=== PATIENT | male | born 1965 | race African-American/Black ===

== ENCOUNTER 2021-08-30 11:50 | Emergency (ER) | payer MEDICAID ==
[~2021-08-30] VITALS: Ht 190.5 cm; Wt 118.0 kg
[2021-08-30] MEDS ORDERED: IV NORMAL SALINE 1000ML BAG 1,000 ML IV ONE (13:15)
[2021-08-30] MEDS ORDERED: MORPHINE SULFATE 4 MG/ML INJ. IVP ONE (13:15)
[2021-08-30] MEDS ORDERED: ONDANSETRON PF 4 MG/2 ML VIAL. IVP ONE (13:15)
[2021-08-30 13:30] LABS: BASO # 0.1 x10^3/uL (0.0-0.2); BASO % 1 % (0-3); EOS # 0.1 x10^3/uL (0.0-0.7); EOS % 2 % (0-3); HEMATOCRIT 51.4 % (39.0-53.0); HEMOGLOBIN 16.3 g/dL (13.0-17.5); LYMPH # 1.7 x10^3/uL (1.0-4.8); LYMPH % 35 % (24-48); MEAN CORPUSCULAR HEMOGLOBIN 28 pg (25-35); MEAN CORPUSCULAR HGB CONC 32 g/dL (31-37); MEAN CORPUSCULAR VOLUME 88 fL (79-100); MONO # 0.4 x10^3/uL (0.0-1.1); MONO % 9 % (0-9); NEUT # 2.7 x10^3/uL (1.8-7.7); NEUT % 54 % (31-73); PLATELET COUNT 158 x10^3/uL (140-400); RED BLOOD COUNT 5.85 x10^6/uL (4.30-5.70); RED CELL DISTRIBUTION WIDTH 16.6 % (11.5-14.5)
[2021-08-30 13:46] LABS: CALCIUM 8.9 mg/dL (8.5-10.1); CREATININE 1.6 mg/dL (0.7-1.3); GFR 54.4; POTASSIUM 4.2 mmol/L (3.5-5.1)
[2021-08-30 13:52] LABS: ALBUMIN 3.4 g/dL (3.4-5.0); ALBUMIN/GLOBULIN RATIO 0.8 (1.0-1.7); TOTAL BILIRUBIN 0.3 mg/dL (0.2-1.0); TOTAL PROTEIN 7.6 g/dL (6.4-8.2)
--- NOTE | 2021-08-30 14:12 | PHYS DOC ---
Past Medical History Additional Past Medical Histor: OA (KISHAN HERRERA Mildred CHAIR POST MACHINE OPERATOR) Past Surgical History: Knee Replacement Additional Past Surgical Histo: FINGER SX (KISHAN HERRERA CHAIR POST MACHINE OPERATOR) Smoking Status: Current Every Day Smoker Alcohol Use: Occasionally (KISHAN HERRERA Mildred CHAIR POST MACHINE OPERATOR) General Adult EDM: Chief Complaint: FLANK PAIN HPI: HPI: Patient is a 56-year-old male with no significant medical history presenting today complaining of moderate bilateral flank pain, symptoms have been going on for "a minute". Patient is also complaining of barely urinating, symptoms have been going on since yesterday. Patient is also complaining of diarrhea since yesterday. Denies any melena. Patient is a poor historian currently asking for pain medicine more than anything else. Denies any nausea, vomiting, urgency frequency or dysuria. States his urine is "dark yellow" denies any personal family history of kidney stones. (KISHAN HERRERA CHAIR POST MACHINE OPERATOR) Review of Systems: Review of Systems: Constitutional: Denies fever or chills. [] Eyes: Denies change in visual acuity. [] HENT: Denies nasal congestion or sore throat. [] Respiratory: Denies cough or shortness of breath. [] Cardiovascular: Denies chest pain or edema. [] GI: Reports diarrhea. Denies abdominal pain, nausea, vomiting, bloody stools or diarrhea. [] : Reports bilateral flank pain and barely urinating. Denies dysuria. [] Musculoskeletal: Denies back pain or joint pain. [] Integument: Denies rash. [] Neurologic: Denies headache, focal weakness or sensory changes. [] Psychiatric: Denies depression or anxiety. [] (KISHAN HERRERA Mildred CHAIR POST MACHINE OPERATOR) Heart Score: C/O Chest Pain: N/A Risk Factors: Risk Factors: DM, Current or recent (<one month) smoker, HTN, HLP, family history of CAD, obesity. Risk Scores: Score 0 - 3: 2.5% MACE over next 6 weeks - Discharge Home Score 4 - 6: 20.3% MACE over next 6 weeks - Admit for Clinical Observation Score 7 - 10: 72.7% MACE over next 6 weeks - Early Invasive Strategies (BAILEELachoKISHAN Mildred CHAIR POST MACHINE OPERATOR) Current Medications: Current Medications Medications (Trade) Dose Ordered Sig/Stevie Start Time Stop Time Status Last Admin Dose Admin Morphine Sulfate (Morphine Sulfate) 4 mg 1X ONCE 08/30/21 13:15 08/30/21 13:18 DC 08/30/21 13:49 4 MG Ondansetron HCl (Zofran) 4 mg 1X ONCE 08/30/21 13:15 08/30/21 13:18 DC 08/30/21 13:48 4 MG Sodium Chloride 1,000 ml @ 1,000 mls/hr 1X ONCE 08/30/21 13:15 08/30/21 14:14 08/30/21 13:46 1,000 MLS/HR (KISHAN HERRERA CHAIR POST MACHINE OPERATOR) Allergies: Allergies: Allergies Coded Allergies Type Severity Reaction Last Updated Verified No Known Drug Allergies 08/30/21 No (KISHAN HERRERA CHAIR POST MACHINE OPERATOR) Physical Exam: PE: Constitutional: Well developed, well nourished, no acute distress, non-toxic appearance. [] HENT: Normocephalic, atraumatic, bilateral external ears normal, oropharynx moist, no oral exudates, nose normal. [] Eyes: PERRLA, EOMI, conjunctiva normal, no discharge. [] Neck: Normal range of motion, no tenderness, supple, no stridor. [] Cardiovascular:Heart rate regular rhythm, no murmur [] Lungs & Thorax: Bilateral breath sounds clear to auscultation [] Abdomen: Bowel sounds normal, soft, no tenderness, no masses, no pulsatile masses. [] Skin: Warm, dry, no erythema, no rash. [] Back: No tenderness, moderate bilateral CVA tenderness. [] Extremities: No tenderness, no cyanosis, no clubbing, ROM intact, no edema. [] Neurologic: Alert and oriented X 3, normal motor function, normal sensory function, no focal deficits noted. [] Psychologic: Affect normal, judgement normal, mood normal. [] (KISHNA HERRERA CHAIR POST MACHINE OPERATOR) Current Patient Data: Labs: Laboratory Tests Test 08/30/21 12:44 White Blood Count 5.0 x10^3/uL (4.0-11.0) Red Blood Count 5.85 x10^6/uL (4.30-5.70) H Hemoglobin 16.3 g/dL (13.0-17.5) Hematocrit 51.4 % (39.0-53.0) Mean Corpuscular Volume 88 fL (79-100) Mean Corpuscular Hemoglobin 28 pg (25-35) Mean Corpuscular Hemoglobin Concent 32 g/dL (31-37) Red Cell Distribution Width 16.6 % (11.5-14.5) H Platelet Count 158 x10^3/uL (140-400) Neutrophils (%) (Auto) 54 % (31-73) Lymphocytes (%) (Auto) 35 % (24-48) Monocytes (%) (Auto) 9 % (0-9) Eosinophils (%) (Auto) 2 % (0-3) Basophils (%) (Auto) 1 % (0-3) Neutrophils # (Auto) 2.7 x10^3/uL (1.8-7.7) Lymphocytes # (Auto) 1.7 x10^3/uL (1.0-4.8) Monocytes # (Auto) 0.4 x10^3/uL (0.0-1.1) Eosinophils # (Auto) 0.1 x10^3/uL (0.0-0.7) Basophils # (Auto) 0.1 x10^3/uL (0.0-0.2) Sodium Level 142 mmol/L (136-145) Potassium Level 4.2 mmol/L (3.5-5.1) Chloride Level 106 mmol/L (98-107) Carbon Dioxide Level 25 mmol/L (21-32) Anion Gap 11 (6-14) Blood Urea Nitrogen 21 mg/dL (8-26) Creatinine 1.6 mg/dL (0.7-1.3) H Estimated GFR (Cockcroft-Gault) 54.4 BUN/Creatinine Ratio 13 (6-20) Glucose Level 108 mg/dL (70-99) H Calcium Level 8.9 mg/dL (8.5-10.1) Total Bilirubin 0.3 mg/dL (0.2-1.0) Aspartate Amino Transferase (AST) 29 U/L (15-37) Alanine Aminotransferase (ALT) 35 U/L (16-63) Alkaline Phosphatase 103 U/L (46-116) Total Protein 7.6 g/dL (6.4-8.2) Albumin 3.4 g/dL (3.4-5.0) Albumin/Globulin Ratio 0.8 (1.0-1.7) L Lipase 78 U/L (73-393) Ethyl Alcohol Level < 10 mg/dL (0-10) Laboratory Tests 08/30/21 12:44 Laboratory Tests 08/30/21 12:44 Vital Signs: Vital Signs Date Time Temp Pulse Resp B/P (MAP) Pulse Ox O2 Delivery O2 Flow Rate FiO2 08/30/21 12:31 97.8 78 16 173/97 (122) 96 97.8 (KISHAN HERRERA CHAIR POST MACHINE OPERATOR) EKG: EKG: [] (KISHAN HERRERA CHAIR POST MACHINE OPERATOR) Radiology/Procedures: Radiology/Procedures: []PROCEDURE: CT ABDOMEN PELVIS WO CONTRAST CT abdomen pelvis without contrast dated 08/30/2021. COMPARISON: None. CLINICAL INDICATION: Flank pain. TECHNIQUE: Contiguous axial imaging the M pelvis performed without the administration of IV or oral contrast. One or more of the following individualized dose reduction techniques were utilized for this examination: 1. Automated exposure control 2. Adjustment of the mA and/or kV according to patient size 3. Use of iterative reconstruction technique. FINDINGS: Limited images of lung bases are clear. Heart size is within normal limits. No pleural or pericardial effusion. Solid abdominal viscera not well evaluated in the absence of contrast material. No apparent attenuation abnormality of the liver or spleen. Pancreas, adrenal glands unremarkable. There are a few calcified stones in the gallbladder. There is a 5.8 cm cystic focus at the upper pole right kidney. There is also a smaller complex cyst at the right kidney lower pole measuring 2.3 cm. No calcific stone within the substance of either kidney. No ureteral stone or hydronephrosis. Unopacified GI tract normal in caliber and contour. No bowel wall thickening. No inflammatory stranding in the mesentery. Appendix normal in caliber. No ascites or lymphadenopathy. Images of pelvis show nondistended urinary bladder. Prostate gland is upper limits of normal in size. No free fluid or pelvic adenopathy. Bone window show no acute finding. Multilevel spondylosis. IMPRESSION: 1. No acute abnormality of abdomen or pelvis. No renal stone or hydronephrosis. 2. Normal appendix. 3. Cholelithiasis. Electronically signed by: Juan Carlos Narayan MD (08/30/2021 2:27 PM) [facility] [place] DICTATED and SIGNED BY: JUAN CARLOS NARAYAN MD DATE: 08/30/21 [id number] (KISHAN HERRERA APRN) Course & Med Decision Making: Course & Med Decision Making Pertinent Labs and Imaging studies reviewed. (See chart for details) This is a 56-year-old male patient presented to the ED today with bilateral flank pain for "a minute" and barely urinating, since yesterday. Is also complaining of diarrhea since yesterday. CBC with a normal WBC, CMP with creatinine of 1.6, BUN is normal, patient was given 1 L of fluid. Urine with no infection. CT of the abdomen and pelvic was noted for cholelithiasis otherwise no acute findings. Blood pressure was running in the 170s over 90s. Patient reports history of hypertension. He states he has not been taking his amlodipine. Prescription was given. Patient instructed to follow-up with his own primary care doctor. He was insistent on having pain medicine for home use. He was given prescription for cyclobenzaprine. Instructed to follow-up with the general surgeon for gallstones. Provided a doctor's list as well. (KISHAN HERRERA APRN) Dragon Disclaimer: Dragon Disclaimer: This electronic medical record was generated, in whole or in part, using a voice recognition dictation system. (KISHAN HERRERA APRN) Departure Departure Impression: Primary Impression: Flank pain Additional Impressions: Methamphetamine use Acute kidney injury Cholelithiasis Qualified Codes: K80.80 - Other cholelithiasis without obstruction Disposition: HOME / SELF CARE / HOMELESS Condition: STABLE Referrals: NO PCP (PCP) follow up in one week withone of the doctors from the list provided ANDREEA TROY MD follow up in 1-2 weeks Patient Instructions: Cholelithiasis, Flank Pain, Methamphetamine Abuse, Complications Additional Instructions: You were evaluated in the emergency room. You're noted to be dehydrated. We encourage you to push fluids. You also have gallstones, follow-up with the provided general surgeon as an out patient. Your drug screen was positive for methamphetamine. Consider getting help if you're using this as a drug. Ensure you're taking your blood pressure medicine Scripts Amlodipine Besylate (AMLODIPINE BESYLATE) 10 Mg Tablet 10 MG PO DAILY, #90 TAB Prov: KISHAN HERRERA APRN 12/13/21 Cyclobenzaprine Hcl (CYCLOBENZAPRINE HCL) 10 Mg Tablet 1 TAB PO TID, #30 TAB Prov: KISHAN HERRERA APRN 08/30/21 Attending Signature Attending Signature I have reviewed the PA/FREIGHT CAR BUILDER's note and plan of care. I was available for consultation as needed during the patient's visit in the emergency department. I agree with the clinical impression, plan, and disposition. (JUAN CARLOS MOSS DO) KISHAN HERRERA APRN Aug 30, 2021 14:12 JUAN CARLOS MOSS DO Sep 04, 2021 23:42
[2021-08-30 14:15] LABS: BILIRUBIN,URINE SMALL (NEG); CLARITY,URINE CLEAR; COLOR,URINE AMBER; NITRITE,URINE NEGATIVE (NEG); PH,URINE 5.5 (<5.0-8.0); PROTEIN,URINE 30 mg/dL (NEG-TRACE)
[2021-08-30 14:21] LABS: BARBITURATES NEG (NEG); BENZODIAZEPINES NEG (NEG); CANNABINOIDS NEG (NEG); COCAINE NEG (NEG); METHADONE NEG (NEG); OPIATES NEG (NEG); PHENCYCLIDINE NEG (NEG)
[2021-08-30 14:29] LABS: AMPHETAMINE/METHAMPHETAMINE POS (NEG)
--- NOTE | 2021-08-30 14:29 | RAD ---
CT abdomen pelvis without contrast dated 08/30/2021. COMPARISON: None. CLINICAL INDICATION: Flank pain. TECHNIQUE: Contiguous axial imaging the M pelvis performed without the administration of IV or oral contrast. One or more of the following individualized dose reduction techniques were utilized for this examinat ion: 1. Automated exposure control 2. Adjustment of the mA and/or kV according to patient size 3. Use of iterative reconstruction technique. FINDINGS: Limited images of lung bases are clear. Heart size is within normal limits. No pleural or pericardial effusion. Solid abdominal viscera not well evaluated in the absence of contrast material. No apparent attenuati on abnormality of the liver or spleen. Pancreas, adrenal glands unremarkable. There are a few calcifi ed stones in the gallbladder. There is a 5.8 cm cystic focus at the upper pole right kidney. There is also a smaller complex cyst a t the right kidney lower pole measuring 2.3 cm. No calcific stone within the substance of either kidn ey. No ureteral stone or hydronephrosis. Unopacified GI tract normal in caliber and contour. No bowel wall thickening. No inflammatory strandi ng in the mesentery. Appendix normal in caliber. No ascites or lymphadenopathy. Images of pelvis show nondistended urinary bladder. Prostate gland is upper limits of normal in size. No free fluid or pelvic adenopathy. Bone window show no acute finding. Multilevel spondylosis. IMPRESSION: 1. No acute abnormality of abdomen or pelvis. No renal stone or hydronephrosis. 2. Normal appendix. 3. Cholelithiasis. Electronically signed by: Juan Carlos Narayan MD (08/30/2021 2:27 PM) [facility]
[2021-08-30 14:55] LABS: AMORPHOUS SEDIMENT,UR PRESENT /HPF; HYALINE CASTS, URINE MANY /HPF
[2021-08-30 14:59] LABS: RBC,URINE 0 /HPF (0-2)
[2021-08-30 15:00] LABS: BACTERIA,URINE 0 /HPF (0-FEW)
[2021-08-30 15:23] VITALS: BP 143/89
[2021-08-30] MEDS ORDERED: CYCL10TA19 PO (16:17)
[2021-08-30] MEDS ORDERED: AMLO-187 PO (16:17)
== END 2021-08-30 16:15 | disposition home or self-care (01) ==
LOC: ER 11:50
DX: N17.9 Acute kidney failure, unspecified (principal); K80.20 Calculus of gallbladder without cholecystitis without obstruction; F15.10 Other stimulant abuse, uncomplicated; F17.200 Nicotine dependence, unspecified, uncomplicated
CPT/HCPCS: 36415; 74176; 80053; 80307; 81001; 83690; 85025; 96361; 96374; 96375; 99284; G0480; J2270; J2405; J7030

== ENCOUNTER 2021-12-08 16:51 | Emergency (ER) | payer MEDICAID ==
[~2021-12-08] VITALS: Ht 190.5 cm; Wt 123.0 kg
[~2021-12-08 16:51] MED LIST: AMLO-187 PO; CYCL10TA19 PO
[2021-12-08 18:25] LABS: BASO % 1 % (0-3); EOS # 0.1 x10^3/uL (0.0-0.7); EOS % 4 % (0-3); HEMATOCRIT 46.6 % (39.0-53.0); HEMOGLOBIN 14.9 g/dL (13.0-17.5); LYMPH # 1.9 x10^3/uL (1.0-4.8); LYMPH % 47 % (24-48); MEAN CORPUSCULAR HEMOGLOBIN 27 pg (25-35); MEAN CORPUSCULAR HGB CONC 32 g/dL (31-37); MEAN CORPUSCULAR VOLUME 84 fL (79-100); MONO # 0.3 x10^3/uL (0.0-1.1); MONO % 9 % (0-9); NEUT # 1.6 x10^3/uL (1.8-7.7); NEUT % 40 % (31-73); PLATELET COUNT 190 x10^3/uL (140-400); RED BLOOD COUNT 5.53 x10^6/uL (4.30-5.70)
[2021-12-08 18:32] LABS: CALCIUM 9.1 mg/dL (8.5-10.1); CREATININE 1.5 mg/dL (0.7-1.3); GFR 58.6; POTASSIUM 3.6 mmol/L (3.5-5.1)
[2021-12-08 18:36] LABS: ACETAMIN < 2 mcg/ml (10-30); ETHANOL < 10 mg/dL (0-10); SALIC 2.7 mg/dL (2.8-20.0)
[2021-12-08 18:37] LABS: ALBUMIN 3.7 g/dL (3.4-5.0); TOTAL BILIRUBIN 0.4 mg/dL (0.2-1.0); TOTAL PROTEIN 7.3 g/dL (6.4-8.2)
--- NOTE | 2021-12-08 18:51 | PHYS DOC ---
Past Medical History Additional Past Medical Histor: OA, SI Past Surgical History: Knee Replacement Additional Past Surgical Histo: FINGER SX Smoking Status: Current Every Day Smoker Alcohol Use: None General Adult EDM: Chief Complaint: SUICDAL IDEATION HPI: HPI: Patient is a 56-year-old male who presents to the emergency department for suicidal ideation. Patient reports he is having auditory hallucinations that are telling him to cut his throat. Patient reports that they started 2 to 3 days ago but is worsened overnight. Patient reports insomnia and has not slept since Monday. He reports a history of bipolar, depression and "anger issues". Patient has been inpatient at [facility] in the last month. It appears that patient takes risperidone, zolpidem, methocarbamol. Patient reports agitation. He is seeking inpatient psych. He denies any drug or alcohol use, homicidal ideation. Patient's only complaint is agitation and is requesting some Ativan. Review of Systems: Review of Systems: Constitutional: Denies fever or chills. [] Eyes: Denies change in visual acuity. [] HENT: Denies nasal congestion or sore throat. [] Respiratory: Denies cough or shortness of breath. [] Cardiovascular: Denies chest pain or edema. [] GI: Denies abdominal pain, nausea, vomiting, bloody stools or diarrhea. [] : Denies dysuria. [] Musculoskeletal: Denies back pain or joint pain. [] Integument: Denies rash. [] Neurologic: Denies headache, focal weakness or sensory changes. [] Endocrine: Denies polyuria or polydipsia. [] Lymphatic: Denies swollen glands. [] Psychiatric: See HPI Heart Score: C/O Chest Pain: N/A Risk Factors: Risk Factors: DM, Current or recent (<one month) smoker, HTN, HLP, family history of CAD, obesity. Risk Scores: Score 0 - 3: 2.5% MACE over next 6 weeks - Discharge Home Score 4 - 6: 20.3% MACE over next 6 weeks - Admit for Clinical Observation Score 7 - 10: 72.7% MACE over next 6 weeks - Early Invasive Strategies Current Medications: Current Medications Medications (Trade) Dose Ordered Sig/Stevie Start Time Stop Time Status Last Admin Dose Admin Lorazepam (Ativan Inj) 1 mg 1X ONCE 12/08/21 18:45 12/08/21 18:48 DC Allergies: Allergies: Allergies Coded Allergies Type Severity Reaction Last Updated Verified No Known Drug Allergies 08/30/21 No Physical Exam: PE: Constitutional: Well developed, well nourished, no acute distress, non-toxic appearance. [] HENT: Normocephalic, atraumatic, bilateral external ears normal, oropharynx m oist, no oral exudates, nose normal. [] Eyes: PERRL, EOMI, conjunctiva normal, no discharge. [] Neck: Normal range of motion, no stridor Cardiovascular:Heart rate regular rhythm, no murmur [] Lungs & Thorax: Bilateral breath sounds clear to auscultation [] Abdomen: Bowel sounds normal, soft, no tenderness, no masses, no pulsatile masses. [] Skin: Warm, dry, no erythema, no rash. [] Back: No tenderness, normal range of motion Extremities: No tenderness, no cyanosis, no clubbing, ROM intact, no edema. [] Neurologic: Alert and oriented X 3, normal motor function, normal sensory function, no focal deficits noted. [] Psychologic: Affect normal, judgement normal, mood normal. [] Current Patient Data: Labs: Laboratory Tests Test 12/08/21 17:48 White Blood Count 4.0 x10^3/uL (4.0-11.0) Red Blood Count 5.53 x10^6/uL (4.30-5.70) Hemoglobin 14.9 g/dL (13.0-17.5) Hematocrit 46.6 % (39.0-53.0) Mean Corpuscular Volume 84 fL (79-100) Mean Corpuscular Hemoglobin 27 pg (25-35) Mean Corpuscular Hemoglobin Concent 32 g/dL (31-37) Red Cell Distribution Width 16.0 % (11.5-14.5) H Platelet Count 190 x10^3/uL (140-400) Neutrophils (%) (Auto) 40 % (31-73) Lymphocytes (%) (Auto) 47 % (24-48) Monocytes (%) (Auto) 9 % (0-9) Eosinophils (%) (Auto) 4 % (0-3) H Basophils (%) (Auto) 1 % (0-3) Neutrophils # (Auto) 1.6 x10^3/uL (1.8-7.7) L Lymphocytes # (Auto) 1.9 x10^3/uL (1.0-4.8) Monocytes # (Auto) 0.3 x10^3/uL (0.0-1.1) Eosinophils # (Auto) 0.1 x10^3/uL (0.0-0.7) Basophils # (Auto) 0.0 x10^3/uL (0.0-0.2) Sodium Level 140 mmol/L (136-145) Potassium Level 3.6 mmol/L (3.5-5.1) Chloride Level 104 mmol/L (98-107) Carbon Dioxide Level 24 mmol/L (21-32) Anion Gap 12 (6-14) Blood Urea Nitrogen 20 mg/dL (8-26) Creatinine 1.5 mg/dL (0.7-1.3) H Estimated GFR (Cockcroft-Gault) 58.6 BUN/Creatinine Ratio 13 (6-20) Glucose Level 111 mg/dL (70-99) H Calcium Level 9.1 mg/dL (8.5-10.1) Total Bilirubin 0.4 mg/dL (0.2-1.0) Aspartate Amino Transferase (AST) 17 U/L (15-37) Alanine Aminotransferase (ALT) 20 U/L (16-63) Alkaline Phosphatase 89 U/L (46-116) Total Protein 7.3 g/dL (6.4-8.2) Albumin 3.7 g/dL (3.4-5.0) Albumin/Globulin Ratio 1.0 (1.0-1.7) Salicylates Level 2.7 mg/dL (2.8-20.0) L Salicylate Last Dose Date Salicylate Last Dose Time Acetaminophen Level < 2 mcg/ml (10-30) L Acetaminophen Last Dose Date Acetaminophen Last Dose Time Ethyl Alcohol Level < 10 mg/dL (0-10) Laboratory Tests 12/08/21 17:48 Laboratory Tests 12/08/21 17:48 Vital Signs: Vital Signs Date Time Temp Pulse Resp B/P (MAP) Pulse Ox O2 Delivery O2 Flow Rate FiO2 12/08/21 17:05 98.3 86 18 162/101 (121) 97 Room Air 98.3 EKG: EKG: [] Radiology/Procedures: Radiology/Procedures: [] Course & Med Decision Making: Course & Med Decision Making Pertinent Labs and Imaging studies reviewed. (See chart for details) [] Patient presents to the emergency department for auditory hallucinations and suicidal ideation delete that. Patient has a history of inpatient at [facility] and would like to have inpatient psychiatric admission at this time. Patient has no complaints other than feeling agitated and is requesting Ativan for this. This was ordered for patient. Work-up in the ER consisted of blood work, urinalysis, UDS to medically clear patient and psychiatric assessment team consulted. Patient placed suicidal precautions. CBC, UA unremarkable. Patient negative for salicylates, Tylenol or alcohol. Patient's creatinine was 1.5 which is consistent with previous lab findings. Urine drug screen positive for methamphetamines and marijuana. Patient medically cleared. Patient continues to be calm and cooperative. Patient's rapid Covid test was negative. Patient was evaluated by member the psychiatric assessment team and we are attempting to place patient at [facility] but it is possible that they will require a Covid PCR test before admission, this was obtained and is pending at this time. [id number]: I discussed patients case with supervising physician and he will assume patient care at this time due to shift change. Lui Disclaimer: Lui Disclaimer: This electronic medical record was generated, in whole or in part, using a voice recognition dictation system. Departure Departure Impression: Primary Impression: Suicidal ideation [facility] Condition: STABLE Referrals: NO PCP (PCP) GEORGIE NUNEZ APRN Dec 08, 2021 18:51
[2021-12-08 20:14] VITALS: BP 162/90
[2021-12-08 20:30] VITALS: BP 147/85
[2021-12-08 21:01] VITALS: BP 145/85
[2021-12-08 22:00] VITALS: BP 156/90
[2021-12-08 22:59] LABS: BACTERIA,URINE 0 /HPF (0-FEW); BARBITURATES NEG (NEG); BENZODIAZEPINES NEG (NEG); CANNABINOIDS POS (NEG); COCAINE NEG (NEG); METHADONE NEG (NEG); OPIATES NEG (NEG); PHENCYCLIDINE NEG (NEG); RBC,URINE 0 /HPF (0-2); WBC,URINE 0 /HPF (0-4)
[2021-12-08 23:00] VITALS: BP 154/80
[2021-12-08 23:03] LABS: AMPHETAMINE/METHAMPHETAMINE POS (NEG)
[2021-12-09 00:01] VITALS: BP 158/82
[2021-12-09] MEDS ORDERED: LIDO:MAALOX 1:1 20 ML SINGLE DOSE. SWSW ONE (06:30)
[2021-12-09] MEDS ORDERED: HALOPERIDOL 5 MG TABLET. PO PRN (09:00)
[2021-12-09 09:08] VITALS: BP 151/94
== END 2021-12-09 13:00 ==
LOC: ER 16:51
DX: R45.851 Suicidal ideations (principal); R44.0 Auditory hallucinations; R45.1 Restlessness and agitation; F31.9 Bipolar disorder, unspecified; F17.200 Nicotine dependence, unspecified, uncomplicated; Z20.822 Contact with and (suspected) exposure to COVID-19
CPT/HCPCS: 36415; 80053; 80307; 80329; 81001; 85025; 87426; 99285; G0480; U0003